=== PATIENT | male | born 1990 | race Two or more races ===

== ENCOUNTER → 2019-03-12 | Emergency (ER) | payer MEDICAID ==
[~2019-03-12] VITALS: Ht 172.7 cm; Wt 63.0 kg
[2019-03-12 14:50] VITALS: BP 116/86
== END | disposition home or self-care (01) ==
LOC: ER 14:47
DX: J20.9 Acute bronchitis, unspecified (principal); Z60.2 Problems related to living alone
CPT/HCPCS: 71045-TC